=== PATIENT | female | born 1950 | race Caucasian/White ===

== ENCOUNTER 2021-06-04 12:19 | Outpatient (CLI) | payer MEDICARE, BC | END 2021-06-04 12:20 | disposition home or self-care (01) | LOC: BICMRI 12:19 | PROVIDERS: ATTEND Nurse Practitioner Family | DX: M25.562 Pain in left knee (principal); M17.12 Unilateral primary osteoarthritis, left knee; S83.241D Other tear of medial meniscus, current injury, right knee, subsequent encounter; S83.281D Other tear of lateral meniscus, current injury, right knee, subsequent encounter ==

== ENCOUNTER 2022-09-09 10:26 | Inpatient (IN) | payer MEDICARE, BC ==
[~2022-09-09 10:26] MED LIST: Iopamidol 370 76% 100 ML VIAL ONE
[2022-09-09] MEDS ORDERED: Dexamethasone 10 MG/ML VIAL ONE (10:51)
[2022-09-09] MEDS ORDERED: Ketorolac Tromethamine 30 MG/ML VIAL ONE (10:51)
[2022-09-09] MEDS ORDERED: Diazepam 10 MG/2 ML SYRINGE ONE (10:51)
[2022-09-09 11:30] LABS: #Lymphocytes 1.3 thou/uL (1.20-3.40); #Monocytes 0.4 thou/uL (0.11-0.59); #Neutrophils 3.6 thou/uL (1.40-6.50); %Basophils 0.5 % (0.0-1.0); %Eosinophils 0.1 % (0.0-10.0); %Lymphocytes 24.3 % (21.0-51.0); %Monocytes 7.9 % (0.0-10.0); %Neutrophils 67.2 % (42.0-75.0); Hemoglobin 8.2 g/dL (12.0-16.0); Mean Corpuscular HGB CONC 32.2 g/dL (32.0-36.0); Mean Corpuscular Volume 71.4 fl (78.0-98.0); Mean Platelet Volume 9.4 fL (7.4-10.4); Platelet Count 180 10x3/uL (130-400); RBC Distribution Width 15.8 % (11.5-14.5); Red Blood Cell (RBC) Count 3.57 mill/uL (4.20-5.40); White Blood Cell (WBC) Count 5.4 10x3/uL (4.8-10.8)
[2022-09-09 11:49] LABS: ALT (SGPT) 10 U/L (8-55); AST (SGOT) 12 U/L (5-34); Albumin 4.1 g/dL (3.4-4.8); Alkaline Phosphatase 96 U/L (40-110); Anion Gap 12 mmol/L (10-20); BUN (Urea Nitrogen) 14 mg/dL (9.8-20.1); Bilirubin, Total 0.3 mg/dL (0.2-1.2); Calc. Creatinine Clearance 0 mL/min (70-130); Calcium 9.2 mg/dL (7.8-10.44); Carbon Dioxide 23 mmol/L (23-31); Chloride 105 mmol/L (98-107); Estimated GFR 85; Globulin 2.7 g/dL (2.4-3.5); Glucose 108 mg/dL (83-110); Protein, Total 6.8 g/dL (5.8-8.1); Sodium 136 mmol/L (136-145)
[2022-09-09 11:50] LABS: MDiff Complete? YES; Microcytosis SLIGHT = 6-15 cells (100X) (0-5/hpf); Ovalocytes SLIGHT = 2-5 cells (100X) (0-1/hpf); Platelet Morphology Comment Appears Adequate; Polychromasia SLIGHT = 2-3 cells (100X) (0-2/hpf)
[2022-09-09] MEDS ORDERED: Ondansetron PF 4 MG/2 ML Vial ONE (12:00)
[2022-09-09] MEDS ORDERED: Morphine 4 MG/ML VIAL ONE (12:00)
[2022-09-09] MEDS ORDERED: FENTANYL 50 MCG/ML 1 ML VIAL ONE ×3 (12:41→17:27)
[2022-09-09] MEDS ORDERED: HYDROcodone/Acetaminophen 10/325 mg Tablet ONE (14:23)
[2022-09-09] MEDS ORDERED: Lidocaine 4% Patch TD SCH (15:00)
[2022-09-09] MEDS ORDERED: HYDROmorphone 0.5 MG/0.5 ML SYRINGE ONE (16:20)
[2022-09-09] MEDS ORDERED: Fentanyl 100 MCG/2 ML VIAL SLOW IVP PRN (16:37)
[2022-09-09] MEDS ORDERED: traMADol HCl 50 MG TAB PO PRN ×2 (16:44→18:40)
[2022-09-09] MEDS ORDERED: OMEPRAZOLE MAGNESIUM PO PRN (16:44)
[2022-09-09 17:16] VITALS: BMI 28.3
[2022-09-09] MEDS: Gabapentin 300 MG CAP PO SCH (19:48)
[2022-09-09] MEDS: tiZANidine HCl 4 MG TAB PO SCH (19:49)
[2022-09-09] MEDS: HYDROcodone/Acetaminophen 5/325 mg Tablet PO PRN (19:49)
[2022-09-09] MEDS ORDERED: FENTANYL 50 MCG/ML 1 ML VIAL SLOW IVP PRN (20:00)
[2022-09-09] MEDS: FENTANYL 50 MCG/ML 1 ML VIAL SLOW IVP PRN (21:40)
[2022-09-09] MEDS ORDERED: HYDROmorphone 0.5 MG/0.5 ML SYRINGE SLOW IVP SCH (23:00)
[2022-09-10] MEDS: FENTANYL 50 MCG/ML 1 ML VIAL SLOW IVP PRN ×2 (02:02→04:49)
[2022-09-10] MEDS ORDERED: Transdermal Patch Removal TOP SCH (03:00)
[2022-09-10] MEDS: HYDROcodone/Acetaminophen 5/325 mg Tablet PO PRN ×4 (03:50→20:19)
[2022-09-10 05:52] LABS: #Basophils 0.1 thou/uL (0.0-0.2); #Lymphocytes 1.2 thou/uL (1.20-3.40); #Monocytes 0.7 thou/uL (0.11-0.59); #Neutrophils 9.2 thou/uL (1.40-6.50); %Basophils 0.5 % (0.0-1.0); %Eosinophils 0.2 % (0.0-10.0); %Lymphocytes 10.7 % (21.0-51.0); %Monocytes 6.4 % (0.0-10.0); %Neutrophils 82.3 % (42.0-75.0); Hemoglobin 9.9 g/dL (12.0-16.0); Mean Corpuscular HGB CONC 29.5 g/dL (32.0-36.0); Mean Corpuscular Hemoglobin 21.7 pg (27.0-31.0); Mean Corpuscular Volume 73.3 fl (78.0-98.0); Platelet Count 260 10x3/uL (130-400); RBC Distribution Width 16.1 % (11.5-14.5); Red Blood Cell (RBC) Count 4.55 mill/uL (4.20-5.40); White Blood Cell (WBC) Count 11.2 10x3/uL (4.8-10.8)
[2022-09-10 06:07] LABS: ALT (SGPT) 12 U/L (8-55); AST (SGOT) 12 U/L (5-34); Albumin 4.1 g/dL (3.4-4.8); Alkaline Phosphatase 105 U/L (40-110); Anion Gap 14 mmol/L (10-20); BUN (Urea Nitrogen) 14 mg/dL (9.8-20.1); Bilirubin, Total 0.4 mg/dL (0.2-1.2); Calc. Creatinine Clearance 77 mL/min (70-130); Calcium 9.4 mg/dL (7.8-10.44); Carbon Dioxide 21 mmol/L (23-31); Chloride 103 mmol/L (98-107); Estimated GFR 79; Globulin 3.1 g/dL (2.4-3.5); Glucose 139 mg/dL (83-110); Potassium 4.2 mmol/L (3.5-5.1); Protein, Total 7.2 g/dL (5.8-8.1); Sodium 134 mmol/L (136-145)
[2022-09-10] MEDS: Gabapentin 300 MG CAP PO SCH ×4 (07:59→22:13)
[2022-09-10] MEDS: Amlodipine 10 MG TAB PO SCH (07:59)
[2022-09-10] MEDS: tiZANidine HCl 4 MG TAB PO SCH ×3 (07:59→20:20)
[2022-09-10] MEDS: Metoprolol Tartrate 25 MG TAB PO SCH ×2 (08:00→20:19)
[2022-09-10] MEDS ORDERED: Iopamidol-370 76% 500 ML MDV (1 ML CHARGE) ONE (11:17)
[2022-09-10] MEDS ORDERED: Polyethylene Glycol 3350 17 GM Packet PO PRN (13:18)
[2022-09-10] MEDS ORDERED: Bisacodyl 10 MG SUPP PR PRN (17:36)
[2022-09-10] MEDS ORDERED: Sodium Chloride 0.9% 1,000 ML IV SCH (17:45)
[2022-09-10] MEDS: Senokot S 8.6-50 MG TAB PO SCH (20:19)
[2022-09-10] MEDS ORDERED: CONFIRM ALL DAY 1 DOSES ARE TIMED FOR DAY 1 FS SCH (21:15)
[2022-09-10] MEDS: HYDROcodone/Acetaminophen 10/325 mg Tablet PO PRN (23:34)
[2022-09-11] MEDS: HYDROcodone/Acetaminophen 10/325 mg Tablet PO PRN ×3 (04:03→11:53)
[2022-09-11 08:38] LABS: ALT (SGPT) 11 U/L (8-55); AST (SGOT) 12 U/L (5-34); Albumin 4.5 g/dL (3.4-4.8); Alkaline Phosphatase 105 U/L (40-110); Anion Gap 12 mmol/L (10-20); BUN (Urea Nitrogen) 19 mg/dL (9.8-20.1); Bilirubin, Total 0.4 mg/dL (0.2-1.2); Calc. Creatinine Clearance 71 mL/min (70-130); Calcium 9.5 mg/dL (7.8-10.44); Carbon Dioxide 26 mmol/L (23-31); Chloride 98 mmol/L (98-107); Estimated GFR 71; Globulin 3.1 g/dL (2.4-3.5); Glucose 82 mg/dL (83-110); Potassium 3.8 mmol/L (3.5-5.1); Protein, Total 7.6 g/dL (5.8-8.1); Sodium 132 mmol/L (136-145)
[2022-09-11] MEDS: Gabapentin 300 MG CAP PO SCH ×3 (08:41→20:29)
[2022-09-11 08:42] LABS: Troponin I Less than 0.010 ng/mL (< 0.028)
[2022-09-11] MEDS: tiZANidine HCl 4 MG TAB PO SCH ×3 (08:42→20:27)
[2022-09-11 08:52] LABS: #Lymphocytes 2.3 thou/uL (1.20-3.40); #Monocytes 0.8 thou/uL (0.11-0.59); #Neutrophils 7.3 thou/uL (1.40-6.50); %Basophils 0.3 % (0.0-1.0); %Eosinophils 0.2 % (0.0-10.0); %Lymphocytes 22.3 % (21.0-51.0); %Monocytes 7.3 % (0.0-10.0); Hemoglobin 10.1 g/dL (12.0-16.0); Mean Corpuscular HGB CONC 30.8 g/dL (32.0-36.0); Mean Corpuscular Hemoglobin 22.1 pg (27.0-31.0); Mean Corpuscular Volume 71.8 fl (78.0-98.0); Mean Platelet Volume 8.9 fL (7.4-10.4); Platelet Count 262 10x3/uL (130-400); RBC Distribution Width 16.1 % (11.5-14.5); Red Blood Cell (RBC) Count 4.56 mill/uL (4.20-5.40); White Blood Cell (WBC) Count 10.5 10x3/uL (4.8-10.8)
[2022-09-11] MEDS: Senokot S 8.6-50 MG TAB PO SCH ×2 (10:22→20:27)
[2022-09-11] MEDS: Amlodipine 10 MG TAB PO SCH (10:22)
[2022-09-11] MEDS: Metoprolol Tartrate 25 MG TAB PO SCH ×2 (10:22→20:27)
[2022-09-11] MEDS: Polyethylene Glycol 3350 17 GM Packet PO SCH ×2 (10:24→12:51)
[2022-09-11 11:36] LABS: Troponin I Less than 0.010 ng/mL (< 0.028)
[2022-09-11] MEDS: methylPREDNISolone 4 mg Tablet PO SCH ×3 (11:52→20:23)
[2022-09-11] MEDS: TAPENTADOL HCL 50 MG PO PRN (12:48)
[2022-09-12] MEDS: HYDROcodone/Acetaminophen 10/325 mg Tablet PO PRN ×4 (01:35→22:12)
[2022-09-12] MEDS: TAPENTADOL HCL 50 MG PO PRN (03:05)
[2022-09-12] MEDS: FENTANYL 50 MCG/ML 1 ML VIAL SLOW IVP PRN (06:22)
[2022-09-12 06:42] LABS: #Basophils 0.1 thou/uL (0.0-0.2); #Lymphocytes 1.3 thou/uL (1.20-3.40); #Monocytes 0.4 thou/uL (0.11-0.59); #Neutrophils 10.7 thou/uL (1.40-6.50); %Basophils 0.4 % (0.0-1.0); %Eosinophils 0.1 % (0.0-10.0); %Lymphocytes 10.3 % (21.0-51.0); %Monocytes 3.4 % (0.0-10.0); %Neutrophils 85.9 % (42.0-75.0); Hemoglobin 10.3 g/dL (12.0-16.0); Mean Corpuscular HGB CONC 31.7 g/dL (32.0-36.0); Mean Corpuscular Hemoglobin 22.3 pg (27.0-31.0); Mean Corpuscular Volume 70.3 fl (78.0-98.0); Platelet Count 282 10x3/uL (130-400); RBC Distribution Width 15.9 % (11.5-14.5); Red Blood Cell (RBC) Count 4.62 mill/uL (4.20-5.40); White Blood Cell (WBC) Count 12.5 10x3/uL (4.8-10.8)
[2022-09-12 07:11] LABS: ALT (SGPT) 12 U/L (8-55); AST (SGOT) 12 U/L (5-34); Albumin 4.2 g/dL (3.4-4.8); Alkaline Phosphatase 103 U/L (40-110); Anion Gap 15 mmol/L (10-20); BUN (Urea Nitrogen) 25 mg/dL (9.8-20.1); Bilirubin, Total 0.4 mg/dL (0.2-1.2); Calc. Creatinine Clearance 71 mL/min (70-130); Calcium 9.6 mg/dL (7.8-10.44); Carbon Dioxide 23 mmol/L (23-31); Chloride 101 mmol/L (98-107); Estimated GFR 71; Globulin 3.5 g/dL (2.4-3.5); Glucose 117 mg/dL (83-110); Potassium 4.7 mmol/L (3.5-5.1); Protein, Total 7.7 g/dL (5.8-8.1); Sodium 134 mmol/L (136-145)
[2022-09-12] MEDS: methylPREDNISolone 4 mg Tablet PO SCH ×3 (08:13→18:03)
[2022-09-12] MEDS: Gabapentin 300 MG CAP PO SCH ×3 (08:13→20:17)
[2022-09-12] MEDS: Senokot S 8.6-50 MG TAB PO SCH ×2 (08:14→20:18)
[2022-09-12] MEDS: tiZANidine HCl 4 MG TAB PO SCH ×3 (08:14→20:19)
[2022-09-12] MEDS: Polyethylene Glycol 3350 17 GM Packet PO SCH (08:14)
[2022-09-12] MEDS: Metoprolol Tartrate 25 MG TAB PO SCH ×2 (08:14→20:18)
[2022-09-12] MEDS: Amlodipine 10 MG TAB PO SCH (08:14)
[2022-09-12] MEDS ORDERED: Lidocaine 4% Patch TD SCH (10:15)
[2022-09-12] MEDS ORDERED: fentaNYL 50 mcg/hour Patch TD SCH (11:00)
[2022-09-12] MEDS: Morphine 4 MG/ML VIAL SLOW IVP SCH ×7 (12:00→23:51)
[2022-09-12] MEDS ORDERED: methylPREDNISolone 4 mg Tablet PO SCH (21:00)
[2022-09-13] MEDS: Morphine 4 MG/ML VIAL SLOW IVP SCH ×11 (04:39→22:19)
[2022-09-13] MEDS: HYDROcodone/Acetaminophen 10/325 mg Tablet PO PRN ×3 (06:08→20:18)
[2022-09-13 06:27] LABS: #Lymphocytes 2.2 thou/uL (1.20-3.40); #Neutrophils 8.4 thou/uL (1.40-6.50); %Basophils 0.2 % (0.0-1.0); %Eosinophils 0.2 % (0.0-10.0); %Lymphocytes 18.7 % (21.0-51.0); %Monocytes 8.9 % (0.0-10.0); %Neutrophils 71.9 % (42.0-75.0); Hemoglobin 10.4 g/dL (12.0-16.0); Mean Corpuscular HGB CONC 31.3 g/dL (32.0-36.0); Mean Corpuscular Hemoglobin 22.7 pg (27.0-31.0); Mean Corpuscular Volume 72.5 fl (78.0-98.0); Mean Platelet Volume 9.7 fL (7.4-10.4); Platelet Count 225 10x3/uL (130-400); RBC Distribution Width 16.4 % (11.5-14.5); White Blood Cell (WBC) Count 11.7 10x3/uL (4.8-10.8)
[2022-09-13 06:55] LABS: ALT (SGPT) 14 U/L (8-55); AST (SGOT) 33 U/L (5-34); Albumin 3.9 g/dL (3.4-4.8); Alkaline Phosphatase 94 U/L (40-110); Anion Gap 16 mmol/L (10-20); BUN (Urea Nitrogen) 27 mg/dL (9.8-20.1); Bilirubin, Total 0.3 mg/dL (0.2-1.2); Calc. Creatinine Clearance 60 mL/min (70-130); Calcium 9.4 mg/dL (7.8-10.44); Carbon Dioxide 22 mmol/L (23-31); Chloride 102 mmol/L (98-107); Estimated GFR 58; Globulin 3.7 g/dL (2.4-3.5); Glucose 107 mg/dL (83-110); Potassium 5.6 mmol/L (3.5-5.1); Protein, Total 7.6 g/dL (5.8-8.1); Sodium 134 mmol/L (136-145)
[2022-09-13] MEDS: Transdermal Patch Removal TOP SCH (07:14)
[2022-09-13] MEDS: Gabapentin 300 MG CAP PO SCH ×3 (08:00→20:11)
[2022-09-13] MEDS: Metoprolol Tartrate 25 MG TAB PO SCH ×2 (08:01→20:14)
[2022-09-13] MEDS: Amlodipine 10 MG TAB PO SCH (08:01)
[2022-09-13] MEDS: Senokot S 8.6-50 MG TAB PO SCH ×2 (08:01→20:11)
[2022-09-13] MEDS: tiZANidine HCl 4 MG TAB PO SCH ×3 (08:01→20:11)
[2022-09-13] MEDS: Lidocaine 4% Patch TD SCH (08:02)
[2022-09-13] MEDS: methylPREDNISolone 4 mg Tablet PO SCH ×4 (08:02→20:10)
[2022-09-13] MEDS: Polyethylene Glycol 3350 17 GM Packet PO SCH (08:02)
[2022-09-14] MEDS: HYDROcodone/Acetaminophen 10/325 mg Tablet PO PRN ×2 (00:32→11:56)
[2022-09-14] MEDS: Morphine 4 MG/ML VIAL SLOW IVP SCH ×4 (00:32→07:21)
[2022-09-14] MEDS: tiZANidine HCl 4 MG TAB PO SCH ×3 (00:40→14:47)
[2022-09-14] MEDS: Transdermal Patch Removal TOP SCH ×2 (00:40→18:37)
[2022-09-14 05:19] LABS: #Lymphocytes 1.4 thou/uL (1.20-3.40); #Neutrophils 9.6 thou/uL (1.40-6.50); %Eosinophils 0.2 % (0.0-10.0); %Lymphocytes 11.8 % (21.0-51.0); %Monocytes 8.2 % (0.0-10.0); %Neutrophils 79.8 % (42.0-75.0); Hemoglobin 9.4 g/dL (12.0-16.0); Mean Corpuscular HGB CONC 30.6 g/dL (32.0-36.0); Platelet Count 241 10x3/uL (130-400); RBC Distribution Width 16.1 % (11.5-14.5); Red Blood Cell (RBC) Count 4.27 mill/uL (4.20-5.40)
[2022-09-14 05:41] LABS: ALT (SGPT) 25 U/L (8-55); AST (SGOT) 27 U/L (5-34); Albumin 3.8 g/dL (3.4-4.8); Alkaline Phosphatase 89 U/L (40-110); Anion Gap 14 mmol/L (10-20); BUN (Urea Nitrogen) 32 mg/dL (9.8-20.1); Bilirubin, Total 0.4 mg/dL (0.2-1.2); Calc. Creatinine Clearance 70 mL/min (70-130); Calcium 9.3 mg/dL (7.8-10.44); Carbon Dioxide 24 mmol/L (23-31); Chloride 102 mmol/L (98-107); Estimated GFR 70; Glucose 118 mg/dL (83-110); Protein, Total 6.8 g/dL (5.8-8.1); Sodium 135 mmol/L (136-145)
[2022-09-14] MEDS ORDERED: fentaNYL 50 mcg/hour Patch TD SCH (08:00)
[2022-09-14] MEDS ORDERED: Hydrocortisone 1% Cream 30 GM TUBE TOP PRN (08:11)
[2022-09-14] MEDS: methylPREDNISolone 4 mg Tablet PO SCH ×3 (08:50→19:03)
[2022-09-14] MEDS: Polyethylene Glycol 3350 17 GM Packet PO SCH (08:51)
[2022-09-14] MEDS: Amlodipine 10 MG TAB PO SCH (08:51)
[2022-09-14] MEDS: Gabapentin 300 MG CAP PO SCH ×3 (08:51→21:27)
[2022-09-14] MEDS: Lidocaine 4% Patch TD SCH (08:51)
[2022-09-14] MEDS: Senokot S 8.6-50 MG TAB PO SCH ×2 (08:51→21:25)
[2022-09-14] MEDS: Metoprolol Tartrate 25 MG TAB PO SCH ×2 (08:52→21:25)
[2022-09-14] MEDS ORDERED: Lorazepam 2 MG/ML VIAL SLOW IVP PRN (08:54)
[2022-09-14] MEDS: Morphine 4 MG/ML VIAL SLOW IVP PRN (14:46)
[2022-09-14] MEDS ORDERED: Naloxone HCl 0.4 mg/ml Vial ONE (17:05)
[2022-09-14] MEDS ORDERED: Naloxone HCl 0.4 mg/ml Vial IV SCH ×2 (17:15→19:00)
[2022-09-14] MEDS: Sodium Chloride 0.9% 1,000 ML IV SCH (18:37)
[2022-09-14] MEDS: Acetaminophen 325 MG TAB PO PRN (21:25)
[2022-09-15] MEDS: Sodium Chloride 0.9% 1,000 ML IV SCH ×2 (04:04→20:45)
[2022-09-15] MEDS: Morphine 4 MG/ML VIAL SLOW IVP PRN (04:04)
[2022-09-15] MEDS: HYDROcodone/Acetaminophen 10/325 mg Tablet PO PRN ×5 (05:48→23:43)
[2022-09-15] MEDS: Polyethylene Glycol 3350 17 GM Packet PO SCH (07:29)
[2022-09-15] MEDS: Senokot S 8.6-50 MG TAB PO SCH ×2 (07:29→21:18)
[2022-09-15] MEDS: Amlodipine 10 MG TAB PO SCH (08:13)
[2022-09-15] MEDS: Lidocaine 4% Patch TD SCH (08:13)
[2022-09-15] MEDS: Gabapentin 300 MG CAP PO SCH ×3 (08:13→20:47)
[2022-09-15] MEDS: tiZANidine HCl 4 MG TAB PO PRN ×2 (08:14→20:47)
[2022-09-15] MEDS: Metoprolol Tartrate 25 MG TAB PO SCH ×2 (08:14→20:49)
[2022-09-15] MEDS: methylPREDNISolone 4 mg Tablet PO SCH ×2 (10:08→17:40)
[2022-09-15] MEDS: Transdermal Patch Removal TOP SCH ×2 (23:43→23:47)
[2022-09-16] MEDS: Sodium Chloride 0.9% 1,000 ML IV SCH ×3 (05:07→21:02)
[2022-09-16] MEDS: tiZANidine HCl 4 MG TAB PO PRN (05:46)
[2022-09-16] MEDS: HYDROcodone/Acetaminophen 10/325 mg Tablet PO PRN (05:46)
[2022-09-16] MEDS ORDERED: methylPREDNISolone 4 mg Tablet PO SCH (08:00)
[2022-09-16] MEDS: Lidocaine 4% Patch TD SCH (09:44)
[2022-09-16] MEDS: Amlodipine 10 MG TAB PO SCH (09:45)
[2022-09-16] MEDS: Gabapentin 300 MG CAP PO SCH ×3 (09:45→20:59)
[2022-09-16] MEDS: Senokot S 8.6-50 MG TAB PO SCH ×2 (09:45→20:59)
[2022-09-16] MEDS: Metoprolol Tartrate 25 MG TAB PO SCH ×2 (09:46→21:00)
[2022-09-16] MEDS: Polyethylene Glycol 3350 17 GM Packet PO SCH (09:46)
[2022-09-16] MEDS ORDERED: Bupivacaine 0.25% 10 ML VIAL ONE (13:14)
[2022-09-16] MEDS ORDERED: Lidocaine 2% PF 5 ML VIAL ONE (13:14)
[2022-09-16] MEDS ORDERED: Iopamidol-M 300 61% 15 ML VIAL ONE (13:14)
[2022-09-16] MEDS: Acetaminophen 325 MG TAB PO PRN (21:00)
[2022-09-16] MEDS: Transdermal Patch Removal TOP SCH (21:02)
[2022-09-17] MEDS: HYDROcodone/Acetaminophen 10/325 mg Tablet PO PRN ×3 (01:59→15:05)
[2022-09-17] MEDS: Sodium Chloride 0.9% 1,000 ML IV SCH (06:25)
[2022-09-17] MEDS: Lidocaine 4% Patch TD SCH (09:26)
[2022-09-17] MEDS: Gabapentin 300 MG CAP PO SCH ×2 (09:27→14:06)
[2022-09-17] MEDS: Amlodipine 10 MG TAB PO SCH (09:28)
[2022-09-17] MEDS: Polyethylene Glycol 3350 17 GM Packet PO SCH (09:28)
[2022-09-17] MEDS: Metoprolol Tartrate 25 MG TAB PO SCH (09:28)
[2022-09-17] MEDS: Senokot S 8.6-50 MG TAB PO SCH (09:28)
[2022-09-17 11:06] VITALS: BP 167/69; TEMP 97.7
== END 2022-09-17 16:00 | disposition home or self-care (01) | DRG 552 ==
LOC: ERS 10:26 → ERHOLD 16:49 → SURG B 18:47 → OBSVTOIN 09-10 13:15
PROVIDERS: ADMIT Internal Medicine; ATTEND Family Medicine
PROC: 3E0S33Z Introduction of Anti-inflammatory into Epidural Space, Percutaneous Approach (ICD-10-PCS; principal; 2022-09-16)
PROC: 3E0S3BZ Introduction of Anesthetic Agent into Epidural Space, Percutaneous Approach (ICD-10-PCS; 2022-09-16)
DX: M48.062 Spinal stenosis, lumbar region with neurogenic claudication (principal); M54.16 Radiculopathy, lumbar region; G43.909 Migraine, unspecified, not intractable, without status migrainosus; K21.9 Gastro-esophageal reflux disease without esophagitis; R33.9 Retention of urine, unspecified; Z79.899 Other long term (current) drug therapy; Z98.51 Tubal ligation status; Z90.49 Acquired absence of other specified parts of digestive tract
CPT/HCPCS: 36415; 36416; 51702; 72146; 72148; 74174; 74178; 80053; 82105; 82378; 84484; 85025; 85652; 86140; 86301; 93005; 93010; 96374; 96375; 96376; G0378; J1040; J1100; J1170; J1885; J2001; J2060; J2270; J2310; J2405; J3010; J3360; J7050; J7509; Q9967; S0020